=== PATIENT | female | born 1995 | race African-American/Black ===

== ENCOUNTER 2024-01-03 13:35 | Emergency (ER) | payer OTHER, SELFPAY ==
[2024-01-03 13:37] VITALS: BP 125/100; PULSE 65; RESP 18; TEMP 36.4; O2SAT 95
--- NOTE | 2024-01-03 13:39 | NURSING ---
NO OLD EKGS
[2024-01-03 13:40] VITALS: BMI 42.0
--- NOTE | 2024-01-03 13:51 | EKG12_ITS ---
Test Reason : syncope Blood Pressure : / mmHG Vent. Rate : 072 BPM Atrial Rate : 072 BPM P-R Int : 166 ms QRS Dur : 084 ms QT Int : 402 ms P-R-T Axes : 033 044 025 degrees QTc Int : 440 ms Sinus rhythm with marked sinus arrhythmia Otherwise normal ECG No previous ECGs available Confirmed by JULIA FROST, SHERICE ([id number]), editor book EUFEMIA PEREZ ([id number]) on 01/07/2024 8:27:05 AM Referred By: Confirmed By:SHERICE DUMONT MD
--- NOTE | 2024-01-03 14:04 | CT_ITS ---
STUDY: CT BRAIN WITHOUT CONTRAST REASON FOR EXAM: Female, 28 years old. Headache RADIATION DOSAGE (If Supplied By Facility): CTDIvol = ( 47.06 ) mGy, DLP = ( 907.97 ) mGycm TECHNIQUE: Transaxial CT imaging of the brain was performed without administration of intravenous contrast material. Individualized dose optimization techniques were used for this CT. COMPARISON: No relevant priors. FINDINGS: Normal soft tissue structures. Normal calvarium. Normal size ventricles and extra-axial spaces for the patient''s age. Normal white matter tracts of the cerebral hemispheres. Normal basal ganglia and thalami. Normal brainstem. Normal cerebellum. There is no intracranial hemorrhage. There are no findings of an acute ischemic infarction. Normal visualized paranasal sinuses. CT/Brain/Head without Contrast IMPRESSION: Normal unenhanced CT scan of the brain. Electronically Signed: Lev Olivier MD at 15:03 EDT ,
--- NOTE | 2024-01-03 14:20 | EDS_ITS ---
<Statement entered by Mayda Duncan MD - 01/03/24 17:16> I have personally performed a face to face assessment of the patient and have reviewed the YULIANA Note. Patient presents secondary to headache with syncopal episode. Patient is from [facility] and is working here as a camp counselor. Earlier this week she was treated for a asthma exacerbation. Earlier today she had a brief syncopal episode. Staff members states that they thought she got overheated and passed out briefly. There is no seizure activity. Patient complains of a headache but does report frequent chronic headaches. She is not on anticoagulants. Patient lying in bed no acute distress. Nontoxic-appearing. Head and neck examination unremarkable. Heart is regular rate and rhythm. Lung sounds are clear. Abdomen is soft and nontender. Neuro exam reveals no focal deficits. CBC is unremarkable other than mild anemia with a hemoglobin of 11.4. Chemistry studies and troponin are negative. test is negative. Portable chest x-ray per my interpretation reveals no focal infiltrate. Radiology interpretation reviewed and agrees. CT scan of the head reveals no acute findings. EKG is sinus rhythm at 72 bpm with no acute ischemia. Normal intervals noted. After CT imaging is unremarkable, patient received Tylenol, Compazine, Benadryl, and IV fluids. On repeat evaluation she does feel improved. I do feel she is stable for discharge. She will be given referral for follow-up. Return instructions were also given. HPI History of Present Illness Chief Complaint: Syncope Narrative Narrative: 28 year old female with pmh of migraines, asthma, allergies presents after a sy ncopal episode. 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 She states she had a headache today and then didn't feel well and passed out. She didn;t feel well beforehand but cannot really describe it. This was witnessed by another [place] counselor and she was out for less than 5 minutes and they put ice packs on her and she woke up and returned to baseline. No seizure, tongue bite, or incontinence. She states she still has a headache and has intermittently this week. Earlier this week she had an asthma attack and was treated by the paramedics. Since then she denies cp/sob. PFSH PFSH Home Medications ?Medication ?Instructions ?Recorded ?Last Taken ?Type albuterol sulfate 90 mcg/actuation 2 puff inhalation Q6H PRN PRN 01/03/24 Unknown History aerosol inhaler wheezing budesonide-formoterol HFA 80 inhalation 01/03/24 Unknown History mcg-4.5 mcg/actuation aerosol inhaler (Symbicort) cetirizine 10 mg tablet 10 mg PO DAILY 01/03/24 Unknown History montelukast 10 mg tablet 10 mg PO QHS 01/03/24 Unknown History Allergy/AdvReac Type Severity Reaction Status Date / Time black pepper (pepper) Allergy Mild Other Verified 01/03/24 13:37 ibuprofen Allergy Mild Itching Verified 01/03/24 13:37 Social History Smoking Status: Never smoker ROS ROS ED Constitutional Constitutional ED: Denies chills or fever(s) Cardiovascular Cardiovascular: Denies chest pain Respiratory/Chest Respiratory/Chest: Denies dyspnea Gastrointestinal Gastrointestinal: Denies abdominal pain, diarrhea, melena or vomiting Genitourinary Genitourinary ED: Denies dysuria Neurologic Neurologic: Reports headache(s); Denies paresthesias or weakness EXAM Physical Exam Const Vital Signs: 01/03/24 13:37 01/03/24 14:38 01/03/24 15:36 Temperature 97.6 F L Temperature Source Temporal Pulse Rate 65 78 Respiratory Rate 18 17 Respiratory Effort Normal Blood Pressure 125/100 H 142/91 H Blood Pressure Mean 108 108 Pulse Ox 95 98 Oxygen Delivery Method Room Air Room Air Positive well nourished and well developed General Appearance ED: well developed Eyes PERRL and EOMs intact bilaterally Resp normal respiratory effort and clear to auscultation bilaterally Cardio regular rate, regular rhythm and no murmurs GI normal to inspection, nondistended, normoactive bowel sounds, non-tender and non-distended Extremity normal to inspection Neuro oriented x3 and CN's II-XII intact bilaterally Sensorium / Orientation: alert Psych mental status grossly normal MDM MDM MDM Narrative Medical decision making narrative: History gathered from: Patient, coworkers Differential: Vasovagal syncope, cardiac etiology, intracranial process, electrolyte derangement among others Patient had a syncopal episode this morning with quick return to baseline. She has chronic headaches and has been complaining of headache this morning. She is awake and alert in no distress. BP 125/100 in triage with otherwise normal vital signs. Her exam overall is benign and she is neurologically intact. She has no infectious signs or symptoms. CBC shows mild anemia of 11.4 with no previous for comparison. BMP unremarkable. EKG is sinus rhythm with no ischemia and troponin is less than 3. test negative. CXR negative. CT brain shows no acute findings. She was treated with IV fluids and Tylenol, Compazine, Benadryl for her headache. On reassessment at 4:20 PM patient she is feeling much improved. She is able to walk down the hallway and use the restroom. Comfortable with discharge and the camp nurse will monitor and return if symptoms worsen. Lab Data Attestation: I reviewed the patient's lab results. Labs: Laboratory Results - last 24 hr 01/03/24 14:25 WBC 6.4 RBC 4.94 Hgb 11.4 L Hct 38.1 MCV 77.1 L MCH 23.1 L MCHC 29.9 L RDW Std Deviation 42.2 RDW Coeff of Lazaro 15.3 H Plt Count 419 MPV 10.0 Immature Gran % (Auto) 0.300 Neut % (Auto) 53.5 Lymph % (Auto) 36.9 [place] % (Auto) 7.4 Eos % (Auto) 1.3 Baso % (Auto) 0.6 Absolute Neuts (auto) 3.4 Absolute Lymphs (auto) 2.36 Nucleated RBC % 0 Sodium 139 Potassium 3.9 Chloride 104 Carbon Dioxide 28.0 Anion Gap 7 BUN 9 Creatinine 0.87 Estim Creat Clear Calc 113.30 Est GFR (MDRD) Af Amer 99 Est GFR (MDRD) Non-Af 82 BUN/Creatinine Ratio 10.3 Glucose 85 Calcium 9.1 Troponin I High Sens < 3 L Serum , Qual NEGATIVE Radiography Diagnostic Testing: Clinical Impression(s) from Imaging Studies Brain CT 01/03/24 14:04 IMPRESSION: Normal unenhanced CT scan of the brain. Electronically Signed: Lev Olivier MD at 15:03 EDT , Chest X-Ray 01/03/24 14:55 IMPRESSION: Normal x-ray examination of the chest. Electronically Signed: Lev Olivier MD at 15:06 EDT , ED attending interpretation of 1-view chest x-ray shows normal heart size, no acute infiltrate. EKG Initial EKG: Attestation: I personally reviewed and interpreted this EKG as follows: Interpretation: Sinus Rhythm and No Acute Injury Pattern Comments: NSR with sinus arrhythmia at 72 bmp Normal intervals, no WPW No acute ischemic changes Discharge Plan Triage Chief Complaint: Syncope ED Midlevel Provider: Annabel Gee ED Provider: Mayda Duncan Dx/Rx/DC Orders Clinical Impression: Syncope, Headache Instructions: Causes of Syncope Prescriptions: No Action cetirizine 10 mg tablet 10 mg PO DAILY montelukast 10 mg tablet 10 mg PO QHS albuterol sulfate 90 mcg/actuation HFA aerosol inhaler 2 puff inhalation Q6H PRN PRN (Reason: wheezing) budesonide-formoterol [Symbicort] 80-4.5 mcg/actuation HFA aerosol inhaler INHALATION Patient Comments: PLEASE SEE ATTACHED FOR DETAILED DIRECTIONS Primary Care Provider: Care Physician,No Primary Referrals: Care Physician,No Primary [Primary Care Provider] - Activity Restrictions/Additional Instructions: Rest, drink plenty of fluids, and take Tylenol or Motrin as needed for headache. If symptoms worsen or you pass out again come back for reevaluation. Print Language: Macedonian Disposition Disposition: Home, Self Care
[2024-01-03 14:34] LABS: Absolute Lymphocyte Count 2.36 X10^3/uL (0.83-4.51); Absolute Neutrophil Count 3.4 X10^3/uL (2.0-7.7); Basophil# 0.04 X10^3/uL; Basophil% 0.6 % (0-1); Eosinophil# 0.08 X10^3/uL; Eosinophils% 1.3 % (0-5); Hematocrit 38.1 % (37-47); Hemoglobin 11.4 g/dL (12.0-15.0); Lymphocyte # 2.36 X10^3/ul (0.83-4.51); Lymphocyte % 36.9 % (19-41); Mean Corp Hgb Conc 29.9 g/dL (32-36); Mean Corpuscular Hgb 23.1 pg (27.0-32.0); Mean Corpuscular Volume 77.1 fL (81-99); Monocyte# 0.47 X10^3/uL; Monocyte% 7.4 % (0-10); NRBC Flagged by Analyzer 0 % (0-5); Neutrophil # 3.42 X10^3/uL (2.7-7.7); Neutrophil % 53.5 % (47-70); Platelet Count 419 K/mm3 (150-450); RBC Distribution Width CV 15.3 % (11.6-14.6); RBC Distribution Width SD 42.2 fl (35.1-43.9); Red Blood Count 4.94 M/mm3 (4.2-5.4); White Blood Count 6.4 K/mm3 (4.4-11.0)
[2024-01-03] MEDS: 0.9% Normal Saline (1000mL) 1,000 ML 999 ML IV (14:37)
[2024-01-03 14:46] LABS: Internal QC Validated? YES +Cl - CLEAR BKGD; Pregnancy, Serum, hCG Quali. NEGATIVE Negative
[2024-01-03 14:54] LABS: Anion Gap 7 (5-15); BUN 9 mg/dL (7-18); BUN/Creat Ratio 10.3 RATIO (10-20); Calcium,Total 9.1 mg/dL (8.5-10.1); Chloride 104 mmol/L (98-107); Creatinine, Serum 0.87 mg/dL (0.55-1.02); EST Glomerular Filtration Rate 82 mL/min (>60); Est Glom Filt Rate - Afr Amer 99 mL/min (>60); Glucose 85 mg/dL (74-106); Potassium 3.9 mmol/L (3.5-5.1); Sodium Level 139 mmol/L (136-145); Troponin-I HS < 3 pg/mL (3.0-54.0)
--- NOTE | 2024-01-03 14:55 | RAD_ITS ---
STUDY: X-RAY CHEST REASON FOR EXAM: Female, 28 years old. Syncope TECHNIQUE: Single AP portable view of the chest. COMPARISON: None. FINDINGS: The lungs are clear and expanded. There is no demonstrated pleural abnormality. Normal size heart. Normal mediastinum and liza. Normal visualized pulmonary arteries. Normal visualized aortic arch and descending thoracic aorta. Normal visualized thoracic spine. Normal visualized ribs, clavicles, and shoulders. There is no demonstrated abnormality of the visualized soft tissue structures of the upper abdomen. RAD/Chest 1 View (Portable) IMPRESSION: Normal x-ray examination of the chest. Electronically Signed: Lev Olivier MD at 15:06 EDT ,
[2024-01-03 15:36] VITALS: BP 142/91; PULSE 78; RESP 17; O2SAT 98
[2024-01-03] MEDS: DiphenhydrAMINE 50 MG/ML Syringe 25 MG IV (15:36)
[2024-01-03] MEDS: Acetaminophen 500 MG Tablet 1000 MG PO (15:36)
[2024-01-03] MEDS: proCHLORPERazine 10 MG/2 ML Vial 5 MG IV (15:37)
[2024-01-03 16:33] VITALS: BP 139/91; PULSE 78; RESP 17; TEMP 36.6; O2SAT 99
== END 2024-01-03 16:40 | disposition home or self-care (01) ==
PROVIDERS: Physician Assistant; Emergency Provider Emergency Medicine; Visit Provider Emergency Medicine
DX: R55 Syncope and collapse (principal); R51.9 Headache, unspecified; J45.909 Unspecified asthma, uncomplicated
CPT/HCPCS: 70450; 71045; 80048; 84484; 84703; 85025; 93005; 96361; 96374; 96375; 99283; J7030; A4216